=== PATIENT | male | born 1950 | race Caucasian/White ===

== ENCOUNTER → 2016-09-23 | Outpatient (CLI) | payer OTHER ==
[~2016-09-23] MED LIST: ASPI-586 PO; ATOR20TA PO; DESI75TA4 PO; LOVA20TA2 PO; LSNP20T PO; METO25TA60 PO; NAPR500T3 PO; NFLOSA25TA PO; NITR0.4T7 SL; NO HOME MEDICATIONS; [UNRECOGNIZED DRUG - CODE] PO
== END ==
LOC: LAB 16:02
PROVIDERS: ATTEND Family Medicine
DX: C61 Malignant neoplasm of prostate (principal)
CPT/HCPCS: 36415; 84153

== ENCOUNTER 2016-10-29 07:18 | Day surgery (SDC) | payer OTHER ==
[~2016-10-29] VITALS: Ht 177.8 cm; Wt 88.0 kg
[~2016-10-29 07:18] MED LIST changes: -ASPI-586 PO; -ATOR20TA PO; -DESI75TA4 PO; +LACTATED RINGERS 1,000 ML IV SCH; -LOVA20TA2 PO; -LSNP20T PO; -METO25TA60 PO; -NAPR500T3 PO; -NFLOSA25TA PO; -NITR0.4T7 SL; -NO HOME MEDICATIONS; -[UNRECOGNIZED DRUG - CODE] PO
[2016-10-29 07:53] VITALS: BP 158/106
[2016-10-29] MEDS: SODIUM CHLORIDE FLUSH 3 ML SYR IV PRN ×2 (07:59→08:00)
[2016-10-29] MEDS ORDERED: MIDAZOLAM 2 MG/2 ML (VERSED) VIAL ONE (08:52)
[2016-10-29] MEDS ORDERED: LIDOCAINE 1% (XYLOCAINE) 20 ML VIAL ONE (08:52)
[2016-10-29] MEDS ORDERED: PROPOFOL 20 ML IV ONE (08:52)
[2016-10-29] MEDS ORDERED: ALFENTANIL 500 MCG/ML (ALFENTA) 5 ML AMP IV ONE (08:54)
[2016-10-29] MEDS ORDERED: methylPREDNISolone 80 MG/ML (DEPO MEDROL) VIAL IM ONE (09:01)
[2016-10-29] MEDS ORDERED: LIDOCAINE/EPINEPHRINE 1% 1:100,000 (XYLOCAINE) 30 ML VIAL INJ ONE (09:01)
[2016-10-29] MEDS ORDERED: SODIUM CHLORIDE FLUSH 10 ML ONE (09:01)
[2016-10-29] MEDS ORDERED: meTOprolol 5 MG/5 ML (LOPRESSOR) VIAL IV ONE (09:31)
[2016-10-29] MEDS ORDERED: LABETALOL HCL 100 MG/20 ML VIAL IV ONE (09:32)
[2016-10-29 10:26] VITALS: BP 149/83
[2016-10-29 10:53] VITALS: BP 147/95
== END 2016-10-29 10:59 | disposition home or self-care (01) ==
LOC: ASC 07:18
PROVIDERS: ATTEND Surgery
DX: G56.02 Carpal tunnel syndrome, left upper limb (principal); I25.10 Atherosclerotic heart disease of native coronary artery without angina pectoris; I10 Essential (primary) hypertension; Z95.0 Presence of cardiac pacemaker
CPT/HCPCS: 64721; 93005; J1040; J2250; J7120; L3908

== ENCOUNTER → 2016-11-12 | Outpatient (REF) | payer OTHER | LOC: LAB 16:58 | PROVIDERS: ATTEND Family Medicine | DX: E78.5 Hyperlipidemia, unspecified (principal) | CPT/HCPCS: 80061 ==